=== PATIENT | female | born 1995 | race Caucasian/White ===

== ENCOUNTER 2019-10-16 12:17 | Emergency (ER) | payer BC, OTHER ==
[2019-10-16] MEDS ORDERED: LIDOCAINE VISCOUS 2% 15 ML CUP MUCOUS MEM ONE (12:37)
[2019-10-16] MEDS ORDERED: IBUPROFEN 600 MG TAB PO STA (12:37)
[2019-10-16] MEDS ORDERED: ONDANSETRON ODT 4 MG TAB PO STA (12:38)
[2019-10-16] MEDS ORDERED: KETOROLAC 60 MG/2 ML VIAL IM STA (13:00)
--- NOTE | 2019-10-16 13:20 | ED ---
URI HPI - General Chief Complaint: Upper Respiratory Infection Stated Complaint: Congestion Time Seen by Provider: 10/16/19 12:30 Source: patient, RN notes reviewed Mode of arrival: ambulatory Limitations: no limitations - History of Present Illness Initial Comments: This a 24-year-old female presents emergency Department chief complaint of fever cough congestion sore throat. Patient states that she had some nausea vomiting initially with a fever states that she just doesn't feel well. She states that she painful to swallow but no difficulty swallowing. Patient has no current shortness of breath she has not nonproductive cough no recent Tylenol Motrin patient states she has trouble swallowing pills. Patient denies any chance of . Patient does have multiple sick contacts. No ear pain - Related Data Home Medications Medication Instructions Recorded Confirmed Ondansetron Odt Starter Pack 4 each PO Q12HR 05/03/14 05/03/14 [Zofran Odt] buPROPion HCL [Wellbutrin XL] 300 mg PO DAILY 05/03/14 05/03/14 Allergies Allergy/AdvReac Type Severity Reaction Status Date / Time No Known Allergies Allergy Verified 10/16/19 12:27 Review of Systems ROS Statement: Those systems with pertinent positive or pertinent negative responses have been documented in the HPI. ROS Other: All systems not noted in ROS Statement are negative. Past Medical History Past Medical History: No Reported History History of Any Multi-Drug Resistant Organisms: None Reported Past Surgical History: No Surgical Hx Reported Past Psychological History: ADD/ADHD, Anxiety, Depression Smoking Status: Current every day smoker Past Alcohol Use History: None Reported Past Drug Use History: None Reported General Exam Limitations: no limitations General appearance: alert, in no apparent distress Head exam: Present: atraumatic, normocephalic, normal inspection Eye exam: Present: normal appearance, PERRL, EOMI. Absent: scleral icterus, conjunctival injection, periorbital swelling ENT exam: Present: mucous membranes moist, TM's normal bilaterally. Absent: normal oropharynx (Erythema, patient unwilling to give full exam no definite abscess) Neck exam: Present: normal inspection, full ROM. Absent: tenderness, meningismus, lymphadenopathy Respiratory exam: Present: normal lung sounds bilaterally. Absent: respiratory distress, wheezes, rales, rhonchi, stridor Cardiovascular Exam: Present: normal rhythm, tachycardia, normal heart sounds. Absent: systolic murmur, diastolic murmur, rubs, gallop, clicks GI/Abdominal exam: Present: soft, normal bowel sounds. Absent: distended, tend erness, guarding, rebound, rigid Neurological exam: Present: alert, oriented X3 Skin exam: Present: warm, dry, intact, normal color. Absent: rash Course Vital Signs 10/16/19 12:25 Temperature 101.3 F H Pulse Rate 104 H Respiratory 20 Rate Blood Pressure 101/74 O2 Sat by Pulse 94 L Oximetry Medical Decision Making - Medical Decision Making Patient's chest x-rays unremarkable, influenza be positive. Negative strep. Patient will be discharged advised take Tylenol Motrin increase fluids return parameters were discussed. - Lab Data Lab Results 10/16/19 10/16/19 Range/Units 13:03 13:03 Influenza Type A RNA Not Detected (Not Detectd) Influenza Type B (PCR) Detected H (Not Detectd) Group A Strep Rapid Negative (Negative) Disposition Clinical Impression: Influenza Disposition: HOME SELF-CARE Condition: Stable Instructions (If sedation given, give patient instructions): Influenza (ED) Additional Instructions: Please return to the Emergency Department if symptoms worsen or any other concerns. Is patient prescribed a controlled substance at d/c from ED?: No Referrals: Shaq Dockery MD [Primary Care Provider] - 1-2 days Time of Disposition: 14:07
--- NOTE | 2019-10-16 13:33 | XR ---
EXAMINATION TYPE: XR chest 2V DATE OF EXAM ORDERED: 10/16/2019 HISTORY: fever. REFERENCE: None. FINDINGS: The lungs are clear. Pleural spaces are clear. Heart size is normal. IMPRESSION: NORMAL CHEST.
[2019-10-16] MEDS ORDERED: ONDANSETRON 4 MG ODT STARTER PACK 2 TAB BTL PO STA (14:07)
[2019-10-16 14:08] VITALS: BP 108/67; PULSE 91; RESP 18; TEMP 98.5
== END 2019-10-16 14:17 | disposition home or self-care (01) ==
LOC: EC 12:17
DX: J11.1 Influenza due to unidentified influenza virus with other respiratory manifestations (principal); F41.9 Anxiety disorder, unspecified; F32.9 Major depressive disorder, single episode, unspecified; F17.200 Nicotine dependence, unspecified, uncomplicated; Z79.899 Other long term (current) drug therapy
CPT/HCPCS: 87081; 87430; 87502; 71046; 99283; 96372; J1885; S0119

== ENCOUNTER → 2021-10-26 | Outpatient (CLI) | payer BC, OTHER ==
--- NOTE | 2021-10-27 14:39 | ECHOF ---
Referral Reason:R00.2 Intermittent palpitations MEASUREMENTS -------- HEIGHT: 162.6 cm WEIGHT: 56.7 kg BP: RVIDd: 2.3 cm (< 3.3) IVSd: 0.6 cm (0.6 - 1.1) LVIDd: 4.2 cm (3.9 - 5.3) LVPWd: 0.7 cm (0.6 - 1.1) IVSs: 0.8 cm LVIDs: 3.1 cm LVPWs: 1.0 cm LA Diam: 2.8 cm (2.7 - 3.8) Ao Diam: 2.3 cm (2.0 - 3.7) AV Cusp: 1.7 cm (1.5 - 2.6) MV EXCURSION: 24.252 mm (> 18.000) MV EF SLOPE: 124 mm/s (70 - 150) EPSS: 0.4 cm MV E Abdon: 0.70 m/s MV DecT: 127 ms MV A Abdon: 0.43 m/s MV E/A Ratio: 1.63 RAP: 5.00 mmHg RVSP: 10.49 mmHg FINDINGS -------- Sinus rhythm. This was a technically good study. LV size, wall thickness and systolic function are normal, with an EF greater than 55%. The left jessica tricular size is normal. The right ventricle is normal in size. The left atrial size is normal. The right atrial size is normal. The aortic valve is trileaflet, and appears structurally normal. No aortic stenosis or regurgitation. Mild mitral regurgitation is present. Mild tricuspid regurgitation present. Right ventricular systolic pressure is normal at < 35 mmHg. There is no pulmonic regurgitation present. There is no pericardial effusion. CONCLUSIONS -------- 1. LV size, wall thickness and systolic function are normal, with an EF greater than 55%. 2. The left ventricular size is normal. 3. The right ventricle is normal in size. 4. The left atrial size is normal. 5. The right atrial size is normal. 6. The aortic valve is trileaflet, and appears structurally normal. No aortic stenosis or regurgitati on. 7. Mild mitral regurgitation is present. 8. Mild tricuspid regurgitation present. 9. There is no pericardial effusion. OPERATOR ASSISTANT I CEMENTING: Marge Amador RDCS
== END | disposition home or self-care (01) ==
LOC: RADECHMAIN 13:11
PROVIDERS: ATTEND Family Medicine
DX: I08.1 Rheumatic disorders of both mitral and tricuspid valves (principal)
CPT/HCPCS: 93306

== ENCOUNTER → 2023-10-31 | Outpatient (CLI) | payer OTHER ==
--- NOTE | 2023-10-31 09:26 | US ---
EXAMINATION TYPE: US abdomen complete DATE OF EXAM: 10/31/2023 COMPARISON: 06/14/2014 - WNL CLINICAL INDICATION: Female, 28 years old with history of R11.0 CHRONIC NAUSEA; Nausea and vomiting s gretel before 2013; Constipation; Burning in stomach; Family history of underdeveloped esophagus. TECHNIQUE: Multiple sonographic images of the abdomen are obtained. FINDINGS: EXAM MEASUREMENTS: Liver Length: 13.0 cm Gallbladder Wall: 0.1 cm CBD: 0.3 cm Spleen: 8.7 cm Right Kidney: 10.2 x 3.7 x 4.2 cm Left Kidney: 10.9 x 6.2 x 4.5 cm Pancreas: wnl Liver: wnl Gallbladder: Layering hyperechoic and hypoechoic debris in the gallbladder lumen. ? Stones vs debris/ sludge Evidence for sonographic Ash's sign: No CBD: wnl Spleen: wnl Right Kidney: wnl Left Kidney: wnl Upper IVC: wnl Abd Aorta: wnl The liver is homogenous. The intrahepatic portion of the IVC and proximal abdominal aorta are within normal limits. Common bile duct is unremarkable. The visualized portions of the pancreas are homoge nous. The spleen is unremarkable. Kidneys are symmetric and free of hydronephrosis. No renal lesio ns are seen. IMPRESSION: 1. No acute abdominal process. 2. Cholelithiasis/biliary debris.
--- NOTE | 2023-10-31 10:13 | US ---
EXAMINATION TYPE: US thyroid st tissue head/neck DATE OF EXAM: 10/31/2023 COMPARISON: NONE CLINICAL INDICATION: Female, 28 years old with history of R11.0 NAUSEA R13.13 DYSPHAGIA, PHARYNGEAL P HASE; Unable to swallow most solid foods GLAND SIZE: Right Lobe: 4.8 x 1.2 x 1.6 cm Overall Parenchyma: homogeneous Left Lobe: 4.4 x 1.3 x 1.6 cm Overall Parenchyma: homogeneous Isthmus Thickness: 0.2 cm NODULES RIGHT: # of nodules measured on right: 0 Tiny benign 4 mm cyst noted. LEFT: # of nodules measured on left: 0 Tiny benign 3 mm cyst is noted. ISTHMUS: # of nodules measured in the isthmus: 0 Truck Despatcher notes: Bilateral neck scanned, no evidence of lymphadenopathy. No abnormalities submandibular space or lateral neck IMPRESSION: A tiny benign cyst within the either thyroid lobe measuring up to 4 mm. No specific abnormality seen.
--- NOTE | 2023-10-31 10:29 | FL ---
EXAMINATION TYPE: FL barium swallow DATE OF EXAM: 10/31/2023 CLINICAL INDICATION: 28-year-old female R13.13, pharyngeal dysphagia choking and gagging, reports aci d reflux. COMPARISON: None Total Fluoroscopy Time: 2 minutes 19 seconds DAP 312.27 mGycm2 92 images obtained. FINDINGS: The swallowing mechanism is normal and hypopharyngeal anatomy is preserved. The cervical and thoracic portions have a normal course and caliber and normal motility. The mucosa is normal and no persistent filling defect is encountered. There is a small sliding hiatal hernia demonstrated. We were unable to elicit any gastroesophageal re flux during the course of the exam with Valsalva or positional maneuvers. IMPRESSION: Small sliding hiatal hernia. Unable to elicit any gastroesophageal reflux with Valsalva p ositional maneuvers. Note that this does not exclude its possibility. Otherwise, unremarkable esophag malissa.
== END | disposition home or self-care (01) ==
LOC: RADUSWWP 06:49
PROVIDERS: ATTEND Family Medicine
DX: K80.20 Calculus of gallbladder without cholecystitis without obstruction (principal); K44.9 Diaphragmatic hernia without obstruction or gangrene; E07.89 Other specified disorders of thyroid; R13.13 Dysphagia, pharyngeal phase; K21.9 Gastro-esophageal reflux disease without esophagitis; K59.00 Constipation, unspecified; R11.2 Nausea with vomiting, unspecified
CPT/HCPCS: 74220; 76536; 76700